=== PATIENT | male | born 1995 | race Caucasian/White ===

== ENCOUNTER 2020-07-10 09:09 | Outpatient (CLI) | payer BC, SELFPAY ==
[2020-07-12 21:46] LABS: Patient Race White; SARS-CoV-2 RNA Undetected (Undetected); SARS-CoV-2 Specimen Source Nasal
== END 2020-07-10 09:29 ==
DX: Z20.828 Contact with and (suspected) exposure to other viral communicable diseases (principal)
CPT/HCPCS: U0003

== ENCOUNTER 2023-09-19 16:28 | Emergency (ER) | payer OTHER, SELFPAY ==
[2023-09-19 16:33] VITALS: BP 142/76; PULSE 75; RESP 17; TEMP 36.5; O2SAT 99
--- NOTE | 2023-09-19 16:37 | W.ED.GENAD ---
HPI General Date/Time Provider Initiated Documentation: 09/19/23 16:37. 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 Patient is R-hand dominant. Quality described as sore, is able to move his thumb, localizes to the thenar eminence, no radiation to numbness, gross swelling, significant bruising. Severity is described as 4-5/10 when he moves it. Palliating factors include wrapped at home with some relief. Provoking factors include nothing specific. Patient not anticoagulated. Related Data Home Medications Medication Instructions Recorded Confirmed Unknown [No Known Home Meds] 09/19/23 09/19/23 Allergies Allergy/AdvReac Type Severity Reaction Status Date / Time Sulfa (Sulfonamide Allergy Severe Hives Unverified 09/19/23 16:35 Antibiotics) General Stated Complaint: Orthopedic SOLITARIO: 4 Review of Systems All systems reviewed & are unremarkable except as noted in HPI and below Exam Narrative Exam Narrative: GENERAL APPEARANCE: Well-nourished, non-toxic, awake and alert, atraumatic, no acute distress. SKIN: Warm, pink, dry, intact, without rashes/lesions/ulcerations. HEAD: Normocephalic, atraumatic, normal hair distribution for gender/age. EYES: Pupils PERRLA, EOMs intact without nystagmus, normal conjunctiva, no exudates on lids/lashes. ENT: Nares patent, no circumoral cyanosis, no facial swelling NECK: Supple, trachea midline, painless cervical ROM. LUNGS/CHEST: Non-labored respirations, normal A/P diameter, symmetrical expansion, no chest wall deformity HEART (CV/PV): Regular rate, L radial pulse 2+, no peripheral edema, no JVD. ABDOMEN: Soft, non-distended, no guarding. MSK: Normal ROM, no swelling/deformity to bilateral UEs or LEs, moving all extremities without weakness, no cyanosis, spine midline without tenderness, normal curvature. L UE: Mild tenderness to the left thenar eminence, mild snuffbox tenderness, strength 5/5 in all ranges of motion of the thumb against resistance, philosophy lecturer strength 5/5, no wrist pain, sensation intact, brisk capillary refill in the left thumb NEURO: Mental Status AAOx4 - alert to person, place, time, events No facial droop, no forehead involvement. Motor: No focal weakness - strength 5/5 in bilateral UEs and LEs, proximal and distal, symmetric. Sensory: sensation intact to light touch globally. Gait normal: patient ambulated without ataxia into ED room. PSYCH: euthymic, cooperative, pleasant, appropriate speech Course Vital Signs Vital signs: Vital Signs Temperature 36.5 C 09/19/23 16:33 Pulse 75 09/19/23 16:33 Respiratory Rate 17 09/19/23 16:33 Blood Pressure 142/76 H 09/19/23 16:33 Pulse Oximetry 99 09/19/23 16:33 Temperature 36.5 C 09/19/23 16:33 Temperature Source Oral 09/19/23 16:33 Pulse 75 09/19/23 16:33 Respiratory Rate 17 09/19/23 16:33 Blood Pressure 142/76 H 09/19/23 16:33 Blood Pressure Position Sitting 09/19/23 16:33 Pulse Oximetry 99 09/19/23 16:33 Oxygen Delivery Method Room Air 09/19/23 16:33 Oxygen Flow Rate 0 09/19/23 16:33 Medical Decision Making This dictation utilizes [id number] dictation software and may contain unedited grammatical errors. 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 Pain is moderate 4-5 with movement, no significant bruising or deformity. Patients' medical history: negative, otherwise healthy. 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 Pertinent exam findings / vital signs include L UE: Mild tenderness to the left thenar eminence, mild snuffbox tenderness, strength 5/5 in all ranges of motion of the thumb against resistance, philosophy lecturer strength 5/5, no wrist pain, sensation intact, brisk capillary refill in the left thumb. Differential / pathologies of concern include fracture, sprain/strain, contusion, UCL tear, Scaphoid Fracture. Diagnostic studies of: -XR L Thumb, XR L Wrist w Navicular. Interventions of: -Thumb Spica splint provided. ED Course/Assessment/Plan: 28-year-old male otherwise healthy presents with left thumb injury and is neurovascularly intact with good range of motion and strength in the thumb, no major crepitus or deformity, there is no fracture seen on x-rays he likely has a sprain or strain but UCL tear cannot be ruled out at this time. Counseled him on treatment for thumb sprain at home with RICE therapy and therapeutic dosing Tylenol and ibuprofen. Findings not consistent with fracture or neurovascular compromise. Disposition of sprain of left thumb. Patient verbalized understanding of the plan and return to ED criteria and engaged in shared decision making. Medical Records Medical records reviewed: Yes I reviewed the patient's medical records. Imaging Data Radiologic Study: Attestation: I personally reviewed and interpreted this imaging study as follows: Imaging: X-Ray Radiologist's impression: EXAM: XR WRIST LT COMP NAVICULAR and XR thumb LT CLINICAL HISTORY: snuff box TTP, L thumb/wrist injury. TECHNIQUE: 2D digital imaging was performed of the left thumb and wrist. Seven images were obtained. Scaphoid, PA, oblique and lateral views were obtained. COMPARISON: No priors for comparison. FINDINGS: BONES: No acute fracture is present. No bony destructive lesion is seen. JOINTS: The carpal bones are normally aligned. The joint spaces are well maintained. SOFT TISSUE: Normal. IMPRESSION: No acute fracture or dislocation. Quality:SDOH Health Related Social Needs: No Data to Display [facility] All Active Problems (Updated 09/19/23 @ 17:16 by PRADIP Lopez) Sprain of left thumb (Acute) Social History Smoking/Tobacco Use Status: Never Smoking risk assessment performed?: Yes Alcohol Intake: current Alcohol Intake frequency: holidays/special occasions only Drug use: Never Substance use type: does not use Housing: apartment Do you feel safe at home: Yes Do you feel safe in your relationship?: Yes Discharge Plan Disposition Patient Disposition: Home Condition: Stable Discharge Details Clinical Impression: Sprain of left thumb Primary Care Provider: Shilo Cohen ED Provider: Anson Casey Home Meds and New Rx's Prescriptions: No Action No Known Home Meds Discharge Instructions Instructions: Finger Sprain (ED) Additional Instructions: You were seen in the emergency department for the sprain of your left thumb, your x-rays are negative for any fracture. We have provided you with a thumb spica splint to use for 1 to 2 weeks. Please rest, ice, compress and elevate the thumb. Please use therapeutic dosing of Tylenol (acetamenophen) & Advil (ibuprofen) in an alternating fashion as follows: Take 1000mg of Tylenol every 6 hours without missing doses- that is 4 times per day. [place] in between the Tylenol dosings, take 400-600mg of Advil also on a 6 hour schedule, that is also 4 times per day. The daily maximum dosing of Tylenol is 4000mg, and the daily maximum dosing of Advil is 2400mg. This is safe to do for weeks. Please note that some common cold medications & prescription pain medications may contain acetamenophen and you need to read OTC drug labels and factor that in to maximum daily dosings. Follow-up with orthopedics for any persistent pain lasting longer than 2 weeks as you may need ligamentous evaluation. Referrals: Shilo Cohen [Primary Care Provider] - Discharge Data Discharge Date/Time-TO BE ENTERED AT DEPARTURE: 09/19/23 17:33
--- NOTE | 2023-09-19 16:45 | DI.RAD_ITS ---
Exam(s) XR WRIST LT COMP NAVICULAR XR THUMB LT EXAM: XR WRIST LT COMP NAVICULAR and XR thumb LT CLINICAL HISTORY: snuff box TTP, L thumb/wrist injury. TECHNIQUE: 2D digital imaging was performed of the left thumb and wrist. Seven images were obtained . Scaphoid, PA, oblique and lateral views were obtained. COMPARISON: No priors for comparison. FINDINGS: BONES: No acute fracture is present. No bony destructive lesion is seen. JOINTS: The carpal bones are normally aligned. The joint spaces are well maintained. SOFT TISSUE: Normal. IMPRESSION: No acute fracture or dislocation. DATA REPOSITORY: RADIATION DOSE DELIVERED:
== END 2023-09-19 17:33 | disposition home or self-care (01) ==
PROVIDERS: Emergency Provider Physician Assistant
DX: S63.602A Unspecified sprain of left thumb, initial encounter (principal); X50.0XXA Overexertion from strenuous movement or load, initial encounter; Y93.84 Activity, sleeping; Y92.219 Unspecified school as the place of occurrence of the external cause; Y99.0 Civilian activity done for income or pay
CPT/HCPCS: 99283; 73110; 73140